=== PATIENT | male | born 1995 ===

== ENCOUNTER 2021-12-11 12:18 | Emergency (ER) | payer SELFPAY ==
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
[2021-12-11 12:56] VITALS: BP 129/82; PULSE 85; RESP 18; TEMP 36.5; O2SAT 98; BMI 23.2
--- NOTE | 2021-12-11 14:04 | PC.NURSE ---
DISCHARGED AND A RIDE IS ON THE WAY, INSTRUCTIONS AND PRESCRIPTION GIVEN
== END 2021-12-11 14:03 | disposition home or self-care (01) ==
PROVIDERS: Emergency Provider Nurse Practitioner Family
DX: Z04.1 Encounter for examination and observation following transport accident (principal); V89.2XXA Person injured in unspecified motor-vehicle accident, traffic, initial encounter
CPT/HCPCS: 71045; 72040; 73030; 73562; 99282